=== PATIENT | male | born 1950 | race Caucasian/White ===

== ENCOUNTER 2020-03-27 08:31 | Outpatient (CLI) | payer OTHER | END 2020-03-27 08:32 | disposition home or self-care (01) | LOC: LAB 08:31 | PROVIDERS: ATTEND Internal Medicine | DX: I10 Essential (primary) hypertension (principal) | CPT/HCPCS: 36415; 82565 ==

== ENCOUNTER 2020-11-12 16:05 | Outpatient (CLI) | payer MEDICARE | END 2020-11-12 16:06 | disposition critical access hospital (66) | LOC: EMS 16:05 | DX: R11.2 Nausea with vomiting, unspecified (principal); R53.1 Weakness; R42 Dizziness and giddiness | CPT/HCPCS: A0425; A0427 ==

== ENCOUNTER 2020-11-12 16:42 | Emergency (ER) | payer MEDICARE, OTHER ==
[2020-11-12 17:04] LABS: BASOPHILS # (AUTO) 0.1 10^3/uL (0.0-0.1); BASOPHILS % (AUTO) 0.6 %; EOSINOPHILS # (AUTO) 0.1 10^3/uL (0.0-0.7); EOSINOPHILS % (AUTO) 1.4 %; HCT - HEMATOCRIT 38.6 % (42.0-52.0); HGB - HEMOGLOBIN 13.1 g/dL (14.0-18.0); LYMPHOCYTES # (AUTO) 0.8 10^3/uL (1.5-3.5); LYMPHOCYTES % (AUTO) 10.7 %; MEAN CORPUSCULAR HEMOGLOBIN 30.2 pg (27.0-31.0); MEAN CORPUSCULAR HGB CONC 33.9 g/dL (32.0-36.0); MEAN CORPUSCULAR VOLUME 88.9 fL (80.0-94.0); MEAN PLATELET VOLUME 9.9 fL (7.4-11.4); MONOCYTES # (AUTO) 0.5 10^3/uL (0.0-1.0); MONOCYTES % (AUTO) 5.8 %; NEUTROPHILS # (AUTO) 6.3 10^3/uL (1.5-6.6); NEUTROPHILS % (AUTO) 81.1 %; PLT - PLATELET COUNT 259 10^3/uL (130-450); RED BLOOD COUNT 4.34 10^6/uL (4.70-6.10); RED CELL DISTRIBUTION WIDTH 12.4 % (12.0-15.0); WHITE BLOOD COUNT 7.7 x10^3/uL (4.8-10.8)
[2020-11-12 17:18] LABS: ALBUMIN 4.4 g/dL (3.2-5.5); ALBUMIN/GLOBULIN RATIO 1.7 (1.0-2.2); POTASSIUM 4.4 mmol/L (3.5-5.0)
[2020-11-12] MEDS ORDERED: ONDANSETRON 4 MG/2 ML VIAL IVP STA (17:23)
[2020-11-12] MEDS ORDERED: SODIUM CHLORIDE 0.9% 1,000 ML IV STA ×2 (17:23→19:56)
[2020-11-12] MEDS ORDERED: IOVERSOL 320 100 ML VIAL IVP ONE ×2 (17:28→18:13)
--- NOTE | 2020-11-12 17:42 | XRAY Report ---
PROCEDURE: Chest 1 View X-Ray INDICATIONS: chest pain TECHNIQUE: One view of the chest was acquired. COMPARISON: None FINDINGS: Surgical changes and devices: None. Lungs and pleura: No pleural effusions or pneumothorax. Lungs are clear. Mediastinum: Mediastinal contours appear normal. Heart size is normal. Bones and chest wall: No suspicious bony lesions. Overlying soft tissues appear unremarkable. IMPRESSION: Normal portable chest. Reviewed by: Chalino Andrews MD on 11/12/2020 4:41 PM GENE Approved by: Chalino Andrews MD on 11/12/2020 4:41 PM GENE Station ID: [id number]
--- NOTE | 2020-11-12 18:02 | ED Physician Documentation ---
History of Present Illness - Stated complaint Stated Complaint: N/V/WEAKNESS - Chief complaint Chief Complaint: Abd Pain - Additonal information Additional information: 70-year-old male presents the emergency department for evaluation of 1 week intermittent nausea, lightheadedness fatigue and feeling weak. Symptoms began about 1 week ago they dissipated for a day or 2 but then began abruptly today. He denies chest pain or shortness of air though he does carry a history of coronary artery disease. He also unfortunately was found to have multiple pulmonary emboli in March 2019 that required hospitalization [facility]. The etiology or cause of these emboli was never fully understood and he did complete about 4 months of anticoagulation before being advised that he could stop. Patient reports also that over the last week he has been having a lot of nasal congestion and ringing in his hearing in his ears. He does have some very tall grasses around his house that he recently mowed and thinks that congestion or allergies may be contributing. He denies headaches or chest pain. No shortness of air. No vertiginous symptoms just lightheaded. 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 denies: Fever, Chills Eyes: reports: Reviewed and negative Ears: reports: Reviewed and negative Nose: reports: Reviewed and negative Throat: reports: Reviewed and negative Cardiac: denies: Chest pain / pressure, Palpitations, Pedal edema, Calf pain Respiratory: denies: Dyspnea, Cough GI: reports: Nausea. denies: Abdominal Pain, Vomiting, Constipation, Diarrhea : denies: Dysuria, Frequency Skin: reports: Reviewed and negative Musculoskeletal: reports: Reviewed and negative Neurologic: reports: Generalized weakness. denies: Syncope, Headache PD PAST MEDICAL HISTORY - Past Medical History Past Medical History: Yes Cardiovascular: Hypertension, High cholesterol, Coronary artery disease, Pulmonary embolism Respiratory: None Neuro: Migraines Endocrine/Autoimmune: None GI: None : Kidney stones HEENT: None Psych: None Musculoskeletal: Chronic back pain Derm: None, Other drug resistant infections, Psoriasis - Past Surgical History Past Surgical History: Yes - Present Medications Home Medications: Ambulatory Orders Medication Instructions Recorded Confirmed Aspirin EC [Ecotrin] 81 mg PO DAILY 11/12/20 11/12/20 Atorvastatin [Lipitor] 80 mg ORAL HS 11/12/20 11/12/20 Losartan [Cozaar] 50 mg PO DAILY 11/12/20 11/12/20 Ondansetron Odt [Zofran] 4 mg TL Q6H PRN #10 tablet 11/12/20 amLODIPine [Norvasc] 5 mg PO DAILY 11/12/20 11/12/20 - Allergies Allergies/Adverse Reactions: Allergies Allergy/AdvReac Type Severity Reaction Status Date / Time Penicillins Allergy Rash Verified 11/12/20 17:02 - Social History Does the pt smoke?: No Smoking Status: Never smoker Does the pt drink ETOH?: Yes ETOH Use: Beer Does the pt have substance abuse?: Yes Substance Use and Type: Marijuana - Immunizations Immunizations are current?: Yes PD ED PE EXPANDED - General General: Alert, No acute distress, Anxious - Cardiac Cardiac: Regular Rate, Radial strong equal, Pedal strong equal, Cap refill < 2 sec. No: Murmur Present - Respiratory Respiratory: Clear to ausultation antwon. No: Distress, Labored - Abdomen Abdomen: Normal Bowel sounds. No: Tender to palpation - Derm Derm: Normal color, Warm and dry. No: Rash - Extremities Extremities: Normal. No: Deformity, Tenderness - Neuro Neuro: Alert and Oriented X 3, CNII-XII intact - GCS Eye Opening: Spontaneous Motor: Obeys Commands Verbal: Oriented Total: 15 Results - Vitals Vitals: Vital Signs - 24 hr 11/12/20 11/12/20 11/12/20 16:50 17:11 17:43 Temperature 36.0 C L 36.1 C L Heart Rate 62 59 L Heart Rate [ 65 Sitting] Heart Rate [ 61 Standing] Heart Rate [ 62 Supine] Respiratory 20 18 Rate Blood Pressure 139/90 H 141/67 H Blood Pressure 154/81 H [Sitting] Blood Pressure 158/80 H [Standing] Blood Pressure 149/73 H [Supine] O2 Saturation 100 100 11/12/20 11/12/20 18:33 19:20 Temperature 36.5 C 36.3 C L Heart Rate 68 80 Heart Rate [ Sitting] Heart Rate [ Standing] Heart Rate [ Supine] Respiratory 16 16 Rate Blood Pressure 143/74 H 146/75 H Blood Pressure [Sitting] Blood Pressure [Standing] Blood Pressure [Supine] O2 Saturation 99 96 Oxygen O2 Source Room air - EKG (time done) 1728 Rate: Rate (enter#) (55) Rhythm: NSR Intervals: RBBB (incomplete) QRS: Normal Ischemia: Non specific changes (mild V2-V3) Compare to prior EKG: Old EKG unavailable - Labs Labs: Laboratory Tests 11/12/20 11/12/20 11/12/20 16:59 16:59 16:59 WBC 7.7 RBC 4.34 L Hgb 13.1 L Hct 38.6 L MCV 88.9 MCH 30.2 MCHC 33.9 RDW 12.4 Plt Count 259 MPV 9.9 Neut # (Auto) 6.3 Lymph # (Auto) 0.8 L [place] # (Auto) 0.5 Eos # (Auto) 0.1 Baso # (Auto) 0.1 Absolute Nucleated RBC 0.00 Nucleated RBC % 0.0 Sodium 138 Potassium 4.4 Chloride 104 Carbon Dioxide 22 Anion Gap 12.0 BUN 15 Creatinine 1.0 Estimated GFR (MDRD) 74 L Glucose 128 H Lactic Acid 2.4 H Calcium 9.0 Total Bilirubin 1.0 AST 18 ALT 20 Alkaline Phosphatase 48 Troponin I High Sens B-Natriuretic Peptide Total Protein 7.0 Albumin 4.4 Globulin 2.6 Albumin/Globulin Ratio 1.7 Lipase 35 Urine Color Urine Clarity Urine pH Ur Specific [place] Urine Protein Urine Glucose (UA) Urine Ketones Urine Occult Blood Urine Nitrite Urine Bilirubin Urine Urobilinogen Ur Leukocyte Esterase Ur Microscopic Review Urine Culture Comments Nasal Adenovirus (PCR) Nasal B. parapertussis DNA (PCR) Nasal Coronavir 229E PCR Nasal Coronavir HKU1 PCR Nasal Coronavir NL63 PCR Nasal Coronavir OC43 PCR Nasal Enterovir/Rhinovir PCR Nasal Influenza B PCR Nasal Influenza A PCR Nasal Parainfluen 1 PCR Nasal Parainfluen 2 PCR Nasal Parainfluen 3 PCR Nasal Parainfluen 4 PCR Nasal RSV (PCR) Nasal B.pertussis DNA PCR Nasal C.pneumoniae (PCR) Geoff Human Metapneumo PCR Nasal M.pneumoniae (PCR) Nasal SARS-CoV-2 (PCR) 11/12/20 11/12/20 11/12/20 16:59 16:59 17:30 WBC RBC Hgb Hct MCV MCH MCHC RDW Plt Count MPV Neut # (Auto) Lymph # (Auto) [place] # (Auto) Eos # (Auto) Baso # (Auto) Absolute Nucleated RBC Nucleated RBC % Sodium Potassium Chloride Carbon Dioxide Anion Gap BUN Creatinine Estimated GFR (MDRD) Glucose Lactic Acid Calcium Total Bilirubin AST ALT Alkaline Phosphatase Troponin I High Sens < 2.3 L B-Natriuretic Peptide 36 Total Protein Albumin Globulin Albumin/Globulin Ratio Lipase Urine Color Urine Clarity Urine pH Ur Specific [place] Urine Protein Urine Glucose (UA) Urine Ketones Urine Occult Blood Urine Nitrite Urine Bilirubin Urine Urobilinogen Ur Leukocyte Esterase Ur Microscopic Review Urine Culture Comments Nasal Adenovirus (PCR) NOT DETECTED Nasal B. parapertussis DNA (PCR) NOT DETECTED Nasal Coronavir 229E PCR NOT DETECTED Nasal Coronavir HKU1 PCR NOT DETECTED Nasal Coronavir NL63 PCR NOT DETECTED Nasal Coronavir OC43 PCR NOT DETECTED Nasal Enterovir/Rhinovir PCR NOT DETECTED Nasal Influenza B PCR NOT DETECTED Nasal Influenza A PCR NOT DETECTED Nasal Parainfluen 1 PCR NOT DETECTED Nasal Parainfluen 2 PCR NOT DETECTED Nasal Parainfluen 3 PCR NOT DETECTED Nasal Parainfluen 4 PCR NOT DETECTED Nasal RSV (PCR) NOT DETECTED Nasal B.pertussis DNA PCR NOT DETECTED Nasal C.pneumoniae (PCR) NOT DETECTED Geoff Human Metapneumo PCR NOT DETECTED Nasal M.pneumoniae (PCR) NOT DETECTED Nasal SARS-CoV-2 (PCR) NOT DETECTED 11/12/20 19:05 WBC RBC Hgb Hct MCV MCH MCHC RDW Plt Count MPV Neut # (Auto) Lymph # (Auto) [place] # (Auto) Eos # (Auto) Baso # (Auto) Absolute Nucleated RBC Nucleated RBC % Sodium Potassium Chloride Carbon Dioxide Anion Gap BUN Creatinine Estimated GFR (MDRD) Glucose Lactic Acid Calcium Total Bilirubin AST ALT Alkaline Phosphatase Troponin I High Sens B-Natriuretic Peptide Total Protein Albumin Globulin Albumin/Globulin Ratio Lipase Urine Color YELLOW Urine Clarity CLEAR Urine pH 7.5 Ur Specific [place] 1.015 Urine Protein NEGATIVE Urine Glucose (UA) NEGATIVE Urine Ketones 15 H Urine Occult Blood NEGATIVE Urine Nitrite NEGATIVE Urine Bilirubin NEGATIVE Urine Urobilinogen 0.2 (NORMAL) Ur Leukocyte Esterase NEGATIVE Ur Microscopic Review NOT INDICATED Urine Culture Comments NOT INDICATED Nasal Adenovirus (PCR) Nasal B. parapertussis DNA (PCR) Nasal Coronavir 229E PCR Nasal Coronavir HKU1 PCR Nasal Coronavir NL63 PCR Nasal Coronavir OC43 PCR Nasal Enterovir/Rhinovir PCR Nasal Influenza B PCR Nasal Influenza A PCR Nasal Parainfluen 1 PCR Nasal Parainfluen 2 PCR Nasal Parainfluen 3 PCR Nasal Parainfluen 4 PCR Nasal RSV (PCR) Nasal B.pertussis DNA PCR Nasal C.pneumoniae (PCR) Geoff Human Metapneumo PCR Nasal M.pneumoniae (PCR) Nasal SARS-CoV-2 (PCR) - Rads (name of study) cxr Radiology: Final report received (No acute process) CT angio Radiology: Final report received (No evidence of pulmonary embolism. no acute airspace disease in lungs.) PD MEDICAL DECISION MAKING - ED course Complexity details: reviewed old records, reviewed results, re-evaluated patient, considered differential ED course: Of pulmonary embolusT is a 70-year-old male that presents to the emergency department for evaluation of nausea generalized weakness and fatigue as well as congestion over the last week. This is in the setting of a history of coronary artery disease as well as him. On initial presentation he appeared unwell fatigued diaphoretic and was very nauseated. Screening EKG was nonischemic. High-sensitivity troponin was negative. His initial lactate was 2.4. He was repleted with 2 L of crystalloid in the ER. Patient's orthostatics were negative. Given the history of previous PE and an atypical presentation a CT pulmonary angio was completed and it showed no return of the pulmonary embolus. No airspace disease. Respiratory PCR panel was also negative. On reevaluation in the ER his nausea had improved following Zofran. He no longer felt lightheaded after the fluids. I did offer to repeat his lactate but he declined given his improved status. He is advised close follow-up with primary care provider. I did recommend that he take Benadryl or Claritin for the congestion and allergy concerns. Emergent return precautions were discussed. Impression: Lightheaded Nauseated History of previous pulmonary embolism History of coronary artery disease Departure - Departure Disposition: Home, Self Care Condition: Stable Record reviewed to determine appropriate education?: Yes Prescriptions: Ondansetron Odt [Zofran] 4 mg TL Q6H PRN #10 tablet PRN Reason: Nausea / Vomiting Comments: Pranay I am glad that you are feeling better. You were seen in the ER today for feeling lightheaded, nauseated congestion for the last week. Your screening EKG does not show signs that you are having a heart attack. Your chest x-ray was normal. Your screening labs were all essentially normal with the exception of your lactic acid which is only mildly elevated at 2.4. Normal is 2.2. We did do a CT pulmonary angiogram of your chest in the ER as you have the history of previous pulmonary embolus. Your CAT scan was essentially normal and you do not have a return of the pulmonary embolus. We did give you IV fluids in the ER as well as Zofran which is a nausea medicine. I do recommend that you take Benadryl or Claritin at home for congestion and the likely seasonal allergies. I am prescribing some Zofran for nausea. Discuss this ED visit with your primary care provider. If your symptoms are not improving, you develop chest pain or shortness of air or you have any fainting episodes please return immediately to the ER for a second evaluation.
[2020-11-12 18:33] LABS: B. PARAPERTUSSIS- RESP PCR PAN NOT DETECTED; B. PERTUSSIS- RESP PCR PANEL NOT DETECTED; C. PNEUMONIAE- RESP PCR PANEL NOT DETECTED; CORONAVIRUS 229E-RESP PCR NOT DETECTED; CORONAVIRUS HKU1-RESP PCR NOT DETECTED; CORONAVIRUS NL63-RESP PCR NOT DETECTED; CORONAVIRUS OC43-RESP PCR NOT DETECTED; HUMAN METAPNEUMOVIRUS NOT DETECTED; INFLUENZA A- RESP PCR PANEL NOT DETECTED; INFLUENZA B - RESP PCR PANEL NOT DETECTED; M. PNEUMONIAE- RESP PCR PANEL NOT DETECTED; PARAINFLUENZA VIRUS 1 NOT DETECTED; PARAINFLUENZA VIRUS 2 NOT DETECTED; PARAINFLUENZA VIRUS 3 NOT DETECTED; PARAINFLUENZA VIRUS 4 NOT DETECTED; RHINOVIRUS/ENTEROVIRUS NOT DETECTED; RSV- RESP PCR PANEL NOT DETECTED; SARS-CoV-2 -RESP PCR PANEL NOT DETECTED
--- NOTE | 2020-11-12 18:52 | CT Report ---
PROCEDURE: ANGIO CHEST W/WO INDICATIONS: light headed, nausea. hx of PE CONTRAST: IV CONTRAST: Optiray 320 ml: 100 PO CONTRAST: *NO PO CONTRAST TECHNIQUE: After the administration of intravenous contrast, 2 mm thick sections acquired from the pulmonary api chloé to the posterior costophrenic angles. 3-dimensional maximum intensity projection (MIP) coronal a nd sagittal reformats were then acquired through the thorax. For radiation dose reduction, the follow ing was used: automated exposure control, adjustment of mA and/or kV according to patient size. COMPARISON: Chest x-ray 11/12/2020 FINDINGS: Image quality: Excellent. Pulmonary arteries: Pulmonary arteries are normal in size, and demonstrate no intraluminal filling d efects to suggest central pulmonary embolism. Lungs and pleura: There is mild dependent atelectasis bilaterally. No acute consolidation. Mild pricilla eptal emphysematous changes are demonstrated. Mild scarring is also noted in the lung bases. A calcif ied nodule in the right apex is consistent with old granulomatous disease. No pleural effusions or pn eumothorax. Central and peripheral airways are patent. Mediastinum: Heart size is normal, without pericardial effusion. There is severe coronary arterial v ascular calcification. No mediastinal or hilar adenopathy by size criteria. Thoracic aorta is damon l in caliber. Esophagus is normal in caliber, with a small hiatal hernia. Bones and chest wall: No suspicious bony lesions. Ribs and thoracic spine appear intact throughout. No axillary or supraclavicular adenopathy. The thyroid is normal in size and there are no incident al findings. Abdomen: Visualized upper abdomen demonstrates a small hypodensity in the left hepatic lobe measurin g up to 0.9 cm which is too small to characterize but likely represents a cyst. IMPRESSION: 1. No evidence of pulmonary embolism. 2. No acute airspace disease in the lungs. Reviewed by: Inder Carr MD on 11/12/2020 6:51 PM PDT Approved by: Inder Carr MD on 11/12/2020 6:51 PM PDT Station ID: [id number]
[2020-11-12 19:13] LABS: BILIRUBIN,URINE NEGATIVE (NEGATIVE); GLUCOSE, URINE (UA) NEGATIVE (NEGATIVE); KETONES,URINE (UA) 15 mg/dL (NEGATIVE); LEUKOCYTE ESTERASE, URINE NEGATIVE (NEGATIVE); NITRITE,URINE NEGATIVE (NEGATIVE); OCCULT BLOOD,URINE NEGATIVE (NEGATIVE); PH,URINE 7.5 PH (5.0-7.5); PROTEIN,URINE NEGATIVE (NEGATIVE); UROBILINOGEN,URINE 0.2 (NORMAL) E.U./dL (NORMAL)
[2020-11-12 19:17] LABS: CLARITY,URINE CLEAR (CLEAR)
[2020-11-12 21:07] VITALS: BP 150/65
== END 2020-11-12 21:05 | disposition home or self-care (01) ==
LOC: EDUNIT# → ED 16:42
DX: R42 Dizziness and giddiness (principal); R11.0 Nausea; I10 Essential (primary) hypertension; Z86.711 Personal history of pulmonary embolism; I45.10 Unspecified right bundle-branch block; Z20.822 Contact with and (suspected) exposure to COVID-19
CPT/HCPCS: 36415; 71045; 71275; 80053; 81003; 83605; 83690; 83880; 84484; 85025; 87631; 93005; 96361; 96374; 99284; Q9967; 0202U; 81001; 87086

== ENCOUNTER 2023-02-27 08:00 | Outpatient (CLI) | payer MEDICARE ==
--- NOTE | 2023-02-27 10:14 | XRAY Report ---
PROCEDURE: Ankle 3 View RT INDICATIONS: RIGHT ANKLE PAIN TECHNIQUE: 3 views of the ankle were acquired. COMPARISON: None. FINDINGS: Bones: No definite acute fractures or dislocations. Old fracture deformity of the distal tip of the lateral malleolus. Ankle mortise is normally aligned. No suspicious bony lesions. Soft tissues: No tibiotalar joint effusion. Achilles tendon appears normal. Atherosclerotic vascul ar calcifications. IMPRESSION: No definite acute fracture is seen. Old fracture deformity of the distal tip of the lateral malleolus .. If pain persists, consider repeat x-ray in 10-14 days or cross-sectional imaging. Reviewed by: Jassi Ramires MD on 02/27/2023 10:13 AM PDT Approved by: Jassi Ramires MD on 02/27/2023 10:13 AM PDT Station ID: [id number]
--- NOTE | 2023-02-27 10:15 | XRAY Report ---
PROCEDURE: Foot 3 View RT INDICATIONS: RIGHT FOOT PAIN TECHNIQUE: 3 views of the foot were acquired. COMPARISON: None. FINDINGS: Bones: No fractures or dislocations. Mild degenerative changes of the interphalangeal joints and fi rst MTP. No suspicious bony lesions. Soft tissues: No suspicious soft tissue calcifications or masses. IMPRESSION: No acute bony abnormality. If pain persists with conservative management, consider repeat radiographs in 10-14 days or cross-sectional imaging. Reviewed by: Jassi Ramires MD on 02/27/2023 10:14 AM PDT Approved by: Jassi Ramires MD on 02/27/2023 10:14 AM PDT Station ID: [id number]
== END 2023-02-27 23:59 | disposition home or self-care (01) ==
LOC: DI.S 08:00
PROVIDERS: ATTEND Physician Assistant
DX: M19.071 Primary osteoarthritis, right ankle and foot (principal)

== ENCOUNTER 2023-02-27 08:00 | Outpatient (CLI) | payer MEDICARE | END 2023-02-27 23:59 | disposition home or self-care (01) | LOC: LAB.S 08:00 | PROVIDERS: ATTEND Physician Assistant | DX: M25.579 Pain in unspecified ankle and joints of unspecified foot (principal) | CPT/HCPCS: 82962 ==

== ENCOUNTER 2023-03-06 08:00 | Outpatient (CLI) | payer MEDICARE ==
--- NOTE | 2023-03-06 14:37 | XRAY Report ---
PROCEDURE: Ankle 3 View RT INDICATIONS: RIGHT ANKLE PAIN TECHNIQUE: 3 views of the ankle were acquired. COMPARISON: None. FINDINGS: Bones: No acute fractures or dislocations. Ankle mortise is normally aligned. No suspicious bony l esions. Degenerative changes of the tibiotalar joint and dorsal midfoot. Degenerative changes of the posterior subtalar joint. Corticated ossification over the distal fibula compatible with sequela of r emote injury or other chronic process. Soft tissues: No tibiotalar joint effusion. Achilles tendon appears normal. IMPRESSION: No acute bony abnormality. Degenerative changes of the tibiotalar joint and dorsal midfoot. Reviewed by: Ramiro Mack MD on 03/06/2023 2:36 PM PDT Approved by: Ramiro Mack MD on 03/06/2023 2:36 PM PDT Station ID: [id number]
--- NOTE | 2023-03-06 14:38 | XRAY Report ---
PROCEDURE: Foot 3 View RT INDICATIONS: RIGHT FOOT PAIN TECHNIQUE: 3 weightbearing views of the foot were acquired. COMPARISON: None. FINDINGS: Bones: No fractures or dislocations. No suspicious bony lesions. Degenerative changes of the right first interphalangeal joint and metatarsophalangeal joint. Mild degenerative changes of the midfoot. Soft tissues: No suspicious soft tissue calcifications or masses. IMPRESSION: No acute bony abnormality. Mild degenerative changes of the right first metatarsophalangeal and interphalangeal joints. Mild deg enerative changes of the dorsal midfoot. Reviewed by: Ramiro Mack MD on 03/06/2023 2:37 PM PDT Approved by: Ramiro Mack MD on 03/06/2023 2:37 PM PDT Station ID: [id number]
== END 2023-03-06 23:59 | disposition home or self-care (01) ==
LOC: DI.WOS 08:00
PROVIDERS: ATTEND Physician Assistant Surgical
DX: M19.071 Primary osteoarthritis, right ankle and foot (principal)

== ENCOUNTER 2023-06-21 08:00 | Outpatient (CLI) | payer MEDICARE | END 2023-06-21 23:59 | disposition home or self-care (01) | LOC: LAB.F 08:00 | PROVIDERS: ATTEND Physician Assistant Medical | DX: R35.0 Frequency of micturition (principal) | CPT/HCPCS: 87086 ==

== ENCOUNTER 2023-06-21 11:21 | Outpatient (CLI) | payer MEDICARE ==
[2023-06-21 12:30] LABS: PSA TOTAL 4.892 ng/mL (0.000-2.000)
== END 2023-06-21 11:22 | disposition home or self-care (01) ==
LOC: LAB 11:21
PROVIDERS: ATTEND Physician Assistant Medical
DX: R35.0 Frequency of micturition (principal)
CPT/HCPCS: 36415; 84153; 84154; 87086

== ENCOUNTER 2023-08-29 11:59 | Outpatient (CLI) | payer MEDICARE | END 2023-08-29 12:00 | disposition home or self-care (01) | LOC: LAB 11:59 | PROVIDERS: ATTEND Urology | DX: R97.20 Elevated prostate specific antigen [PSA] (principal) | CPT/HCPCS: 36415; 84153 ==

== ENCOUNTER 2023-09-12 07:11 | Outpatient (CLI) | payer MEDICARE ==
[2023-09-12 07:36] LABS: CREATININE 1.1 mg/dL (0.6-1.3)
[2023-09-12] MEDS ORDERED: GADOTERATE MEGLUMINE 10 MMOL/20 ML VIAL ONE (08:18)
[2023-09-12] MEDS: GADOTERATE MEGLUMINE 10 MMOL/20 ML VIAL IVP ONE (09:12)
--- NOTE | 2023-09-12 10:15 | MRI Report ---
PROCEDURE: Pelvis W/WO INDICATIONS: ELEVATED PSA CONTRAST: CLARISCAN 20.0 ML TECHNIQUE: Coronal ultra fast SE, axial T1 FSE with fat saturation, 3-plane nonbreath-hold T2 FSE. After the ad ministration of contrast, dynamic axial, delayed axial and coronal ultra fast GE or 2-D spoiled GE wi th fat saturation through the pelvis. Optional diffusion weighted imaging and ADC may be performed. COMPARISON: None. FINDINGS: Image quality: Diffusion weighted and dynamic contrast enhanced images are diagnostic. Prostate: Gland size is 5.3 x 3.4 x 3.1 cm; ellipsoid gland volume is 29 mL. PSA Density: 0.16 Prostate lesions: Lesion 1: Location: Midline, mid gland, anterior transition zone. This is best seen on axial series 5, image 14 and coronal series 6, image 12. Size: 2.2 x 0.7 cm. T2W signal: Lenticular or non-circumscribed, homogeneous, moderately hypointense (PI-RADS 4 or 5). DWI signal: Markedly hyperintense signal (PI-RADS 4-5). ADC signal: Markedly hypointense signal (PI-RADS 4-5). Enhancement: Yes Extracapsular extension: Likely within the anterior fibromuscular stroma. No neurovascular involvemen t. No seminal vesicle involvement. PI-RADS score: 5 Genitourinary system: Abnormal T2 intermediate signal extending into the bladder from the prostate, with enhancement (series 7, image 14). This is non-encapsulated signal. Diffuse bladder wall thickeni ng. Bowel and peritoneum: No pathologic free pelvic fluid. Inferior colon and small bowel loops are nor mal in caliber. Nodes and vessels: No pelvic or inguinal adenopathy by size criteria. Iliac vessels are normal in c aliber. Soft tissues: No inguinal hernias. Bones: Bone marrow demonstrates normal overall signal. No suspicious bony lesions. IMPRESSION: PI-RADS 5 lesion in the anterior, midline transition zone of the mid gland. Probable extension into t he anterior fibromuscular stroma. No aggressive osseous abnormality. No pelvic adenopathy by size criteria. Given PI-RADS 5 lesion, con email campaign specialist correlation with PMSA to exclude micrometastasis. Reviewed by: Pako Lake MD on 09/12/2023 10:14 AM PDT Approved by: Pako Lake MD on 09/12/2023 10:14 AM PDT Station ID: [id number]
== END 2023-09-12 07:12 | disposition home or self-care (01) ==
LOC: LAB 07:11
PROVIDERS: ATTEND Urology
DX: R97.20 Elevated prostate specific antigen [PSA] (principal); N42.89 Other specified disorders of prostate
CPT/HCPCS: 36415; 72197; 82565; A9575

== ENCOUNTER 2023-11-24 07:11 | Day surgery (SDC) | payer MEDICARE ==
[2023-11-24] MEDS: LACTATED RINGERS 1,000 ML IV ONE (07:16)
[2023-11-24] MEDS ORDERED: DEXAMETHASONE 4 MG/ML VIAL ONE (07:21)
[2023-11-24] MEDS ORDERED: LIDOCAINE-PF 2% 10 ML AMP SUBQ ONE (07:21)
[2023-11-24] MEDS ORDERED: ONDANSETRON 4 MG/2 ML VIAL ONE (07:21)
[2023-11-24] MEDS ORDERED: PROPOFOL 500 MG/50 ML 500 MG/50 ML VIAL ONE (07:21)
--- NOTE | 2023-11-24 07:42 | ANESTHESIA ---
Pre-Anesthesia VS, & Labs - Diagnosis ELEVATED PSA - Procedure TRUS PROSTATE BIOPSY Vital Signs: Temp Pulse Resp BP Pulse Ox O2 Flow Rate 36.2 C L 67 14 158/75 H 100 11/24/23 07:27 11/24/23 07:27 11/24/23 07:27 11/24/23 07:27 11/24/23 07:27 Height: 6 ft 1 in Weight (kg): 101.3 kg Body Mass Index: 29.5 BMI Classification: Overweight - NPO >8 hours Home Medications and Allergies Aspirin EC [Ecotrin] 81 mg PO DAILY 11/12/20 Losartan [Cozaar] 50 mg PO DAILY 11/12/20 amLODIPine [Norvasc] 5 mg PO DAILY 11/12/20 Calcipotriene/Dressing [Trionex 0.005% Kit] 1 each TP PRN PRN 09/25/23 Clobetasol 0.05% Oint [Temovate 0.05% Oint] 1 applic TOP PRN PRN 09/25/23 Rosuvastatin Calcium 40 mg PO DAILY 09/25/23 Tamsulosin [Flomax] 0.4 mg PO DAILY 09/25/23 Allergies/Adverse Reactions: Allergies Allergy/AdvReac Type Severity Reaction Status Date / Time amoxicillin [From Augmentin] Allergy Unknown Verified 09/24/23 15:14 ciprofloxacin [From Cipro] Allergy Unknown Verified 09/24/23 15:14 clavulanic acid Allergy Unknown Verified 09/24/23 15:14 [From Augmentin] Penicillins Allergy Rash Verified 11/12/20 17:02 Anes History & Medical History - Anesthetic History Anesthesia Complications: reports: No previous complications Family history of Anesthesia Complications: Denies Family history of Malignant Hyperthermia: Denies - Medical History Cardiovascular: reports: Hypertension, High cholesterol, Coronary artery disease, Pulmonary embolism, Angina Pulmonary: reports: None Gastrointestinal: reports: Colon polyps Urinary: reports: Kidney stones Neuro: reports: Migraines Musculoskeletal: reports: Osteoarthritis, Chronic back pain Endocrine/Autoimmune: reports: None Blood Disorders: reports: None Skin: reports: Psoriasis Smoking Status: Never smoker Psychosocial: reports: No issues indicated History of Cancer?: No - Surgical History General: reports: Colonoscopy Urologic: reports: Ureterolithotomy (stones) Results - EKG Results EKG Comparison: Reviewed EKG, Normal EKG Exam General: Alert, Oriented x3, Cooperative, No acute distress Dental: Poor dentition Mouth Openin Fingerbreadth Neck Mobility: Normal Mallampati classification: II Thyromental Distance: 4-6 cm Respiratory: Lungs clear, Normal breath sounds, No respiratory distress, No accessory muscle use Cardiovascular: Regular rate, Normal S1, Normal S2, No murmurs Mental/Cognitive Status: Alert/Oriented X3, Normal for patient Cognitive Status: Within normal limits Plan Anesthesia Type: General Consent for Procedure(s) Verified and Reviewed: Yes Code Status: Attempt Resuscitation ASA classification: 3-Severe systemic disease Is this case an emergency?: No
[2023-11-24] MEDS ORDERED: LIDOCAINE 2% URO-JET 5 ML SYRINGE UR ONE (07:51)
[2023-11-24] MEDS ORDERED: iohexoL-240 10 ML VIAL IVP ONE (07:51)
[2023-11-24] MEDS ORDERED: LIDOCAINE-MPF 1% 30 ML VIAL ONE (07:51)
[2023-11-24] MEDS ORDERED: PROPOFOL 200 MG/20 ML VIAL IVP ONE (08:50)
[2023-11-24] MEDS: LIDOCAINE-MPF 1% 30 ML VIAL IM ONE (08:58)
[2023-11-24] MEDS ORDERED: fentaNYL 100 MCG/2 ML VIAL ONE (09:01)
[2023-11-24] MEDS ORDERED: ePHEDrine 50 MG/ML VIAL IVP ONE (09:03)
[2023-11-24] MEDS: LIDOCAINE 2% URO-JET 5 ML SYRINGE UR ONE (09:30)
[2023-11-24] MEDS: LACTATED RINGERS 300 ML IV ONE ×2 (09:39→09:54)
[2023-11-24] MEDS ORDERED: fentaNYL 100 MCG/2 ML VIAL IVP PRN (09:40)
[2023-11-24] MEDS ORDERED: HYDROmorphone 0.5 MG/0.5 ML SYRINGE IVP PRN (09:40)
[2023-11-24] MEDS ORDERED: MORPHINE 2 MG/ML CARPUJECT IVP PRN (09:40)
[2023-11-24] MEDS ORDERED: ONDANSETRON 4 MG/2 ML VIAL IVP PRN ×2 (09:40→09:45)
[2023-11-24] MEDS ORDERED: METOCLOPRAMIDE 10 MG/2 ML VIAL IVP PRN (09:40)
[2023-11-24] MEDS ORDERED: ePHEDrine 50 MG/ML VIAL IVP PRN (09:40)
[2023-11-24] MEDS ORDERED: ATROPINE ABBOJECT 1 MG/10 ML SYRINGE IVP PRN (09:40)
[2023-11-24] MEDS ORDERED: NALOXONE 0.4 MG/ML VIAL IVP PRN (09:40)
--- NOTE | 2023-11-24 09:49 | OPERATIVE REPORT ---
Operative Report - General Procedure Date: 11/24/23 Planned Procedure: Flexible cystoscopy, transrectal ultrasound-guided prostate biopsy Pre-Op Diagnosis: Gross hematuria, elevated PSA Procedure Performed: Flexible cystoscopy, transrectal ultrasound-guided prostate biopsy, rigid cystoscopy and transurethral section of bladder tumor 2 cm in size Post Op Diagnosis: Gross hematuria, elevated PSA, bladder mass - Procedure Note Primary Surgeon: Pilo Anesthesia Provider: LALITO [place] Anesthesia Technique: General LMA Pathology: bladder neck mass prostate biopsy samples Estimated Blood Loss (mL): 1 Indications: Elevated PSA MRI PIRADS 5 lesion to midline mid gland anterior TZ Gross hematuria Findings: 2 cm left bladder neck mass Routine prostate biopsy Complications: Unexpected bladder mass requiring patient to be transitioned to new table for lithotomy positioning and TURBT - Other Other Information/Narrative: After informed consent was obtained from the patient the patient was brought to the OR and laid in the supine position. The patient was anesthetized per anesthesia protocols with MAC. The patient was prepped and draped in usual ster ile fashion. A formal timeout was performed reconfirming the patient, procedure and laterality. A flexible cystoscope was advanced per urethra. He had a relatively short prostate about 4 cm with moderate lateral lobe hypertrophy and obstruction. No significant median lobe. He had a 2 cm papillary tumor emanating from the left bladder neck. There were no other lesions seen. His mucosa was otherwise benign and he had orthotopic ureteral orifices We elected that point time to proceed with the prostate biopsy procedure He was then placed in left lower cubitus position with the right side up. A transrectal ultrasound-guided probe was placed per rectum and his prostate was visualized. 5 cc 1% lidocaine was placed at the lateral aspect of the prostate bilaterally. The prostate volume was measured at 31 cc Using 18-gauge biopsy needle we obtained samples of the prostate from the right and left side, the lateral and medial aspects of the base, mid and apex for a total of 12 samples. An extra sample was placed from the mid right specimen and mid left specimen correlating to the medial mid gland anterior TZ PI-RADS 5 lesion. A total of 14 specimens were taken The probe was slowly removed and no bleeding was identified The patient was then transferred over to a new bed which allowed him to be placed in the dorsolithotomy position. He was reprepped and draped. Dr. Daigle took this time to go speak to the family and let the know that a bladder tumor was identified. She consented towards allowing a transurethral resection of bladder tumor A 26 [place] resectoscope was advanced per urethra into the bladder. Using loop electrocautery and the bipolar setting the 2 cm left bladder neck mass was resected and sent for analysis. There were no further mucosal lesions seen. Spot cautery was used for hemostasis. A 22 [place]ian three-way Carpio catheter was placed with 30 cc balloon and he was placed on gentle continuous bladder irrigation. This concluded procedure the patient procedure well. He was brought to back without further incident. The catheter be removed in the PACU. Will ensure he can void and then he will be discharged home. He will follow-up 1 week's time for pathology discussion
[2023-11-24] MEDS ORDERED: LACTATED RINGERS 1,000 ML IV SCH (10:00)
--- NOTE | 2023-11-24 10:02 | ANESTHESIA POST OP EVALUATION ---
Anesthesia Post Eval - Post Anesthesia Eval Vitals: Last Vital Signs Temp 36.5 C 11/24/23 09:55 Pulse 64 11/24/23 09:55 Resp 24 11/24/23 09:55 BP 132/68 H 11/24/23 09:55 Pulse Ox 99 11/24/23 09:55 O2 Flow Rate CV Function Including HR & BP: Stable Pain Control: Satisfactory Nausea & Vomiting: Negative Mental Status: Baseline Respiratory Status: Airway Patent Hydration Status: Satisfactory Anesthesia Complications: None
--- NOTE | 2023-11-24 10:17 | Discharge Plan ---
Discharge Plan Problem Reviewed?: Yes Disposition: Home, Self Care Condition: Good Prescriptions: HYDROcod/ACETAM 5/325 [[place] 5/325] 1 tab PO Q4H PRN #5 tablet PRN Reason: Pain Diet: Regular Activity Restrictions: Additional Comments (as instructed) Shower Restrictions: No Driving Restrictions: No Instruction Topics: Biopsy Ultrasound Transrectal, Transureth Bladder Tumor Resect Dc Additional Instructions or Follow Up instructions: You have an appointment with Dr. Daigle on December 03 at 9:30 AM. Please arrive 15 minutes early No Smoking: If you smoke, Please STOP! Call for help. Follow-up with: Amari Daigle MD [Provider Admit Priv/Credential] -
[2023-11-24] MEDS: HYDROcod/ACETAM 5/325 MG TABLET PO PRN (10:30)
[2023-11-24 10:38] VITALS: BP 155/78; O2SAT 98
== END 2023-11-24 07:12 | disposition home or self-care (01) ==
LOC: SDS 07:11
PROVIDERS: ATTEND Urology
PROC: 0VB07ZX Excision of Prostate, Via Natural or Artificial Opening, Diagnostic (ICD-10-PCS; principal; 2023-11-24 08:45)
PROC: 0TBC8ZZ Excision of Bladder Neck, Via Natural or Artificial Opening Endoscopic (ICD-10-PCS; 2023-11-24 08:45)
DX: C61 Malignant neoplasm of prostate (principal); C67.5 Malignant neoplasm of bladder neck; I25.10 Atherosclerotic heart disease of native coronary artery without angina pectoris; I10 Essential (primary) hypertension; Z86.711 Personal history of pulmonary embolism
CPT/HCPCS: 52500; 55700; 76942; J7120; Q9966